=== PATIENT | female | born 1945 | race Caucasian/White ===

== ENCOUNTER 2022-06-14 14:23 | Outpatient (CLI) | payer OTHER | END 2022-06-14 14:30 | disposition home or self-care (01) | LOC: RAD 14:23 | PROVIDERS: ATTEND Physical Medicine & Rehabilitation | DX: M25.561 Pain in right knee (principal); M25.562 Pain in left knee ==

== ENCOUNTER 2024-02-03 11:08 | Outpatient (CLI) | payer OTHER | END 2024-02-03 11:13 | disposition home or self-care (01) | LOC: RAD 11:08 | PROVIDERS: ATTEND Family Medicine Geriatric Medicine | DX: M17.0 Bilateral primary osteoarthritis of knee (principal); M25.569 Pain in unspecified knee ==